=== PATIENT | female | born 1980 | race Caucasian/White ===

== ENCOUNTER 2024-02-04 08:35 | Day surgery (SDC) | payer OTHER ==
[2024-02-04] VITALS (11 sets, daily range): BP systolic 105–127; BP diastolic 65–80; PULSE 59–85; RESP 15–18
[~2024-02-04] VITALS: Ht 154.9 cm; Wt 83.9 kg
[~2024-02-04 08:35] MED LIST: BUPR-49 PO; ESOM20CA31 PO; FAMO20TA8 PO
[2024-02-04] MEDS: 0.9%NACL 1000ML 1,000 ML IV ONE (09:44)
[2024-02-04] MEDS ORDERED: PROPOFOL 10 MG/ML 20ML VIAL IV ONE (10:02)
== END 2024-02-04 11:35 | disposition home or self-care (01) ==
LOC: ENDO 08:35 → DAH 08:35 → ENDO 11:35
PROVIDERS: ATTEND Internal Medicine Gastroenterology
DX: R93.3 Abnormal findings on diagnostic imaging of other parts of digestive tract (principal); K83.8 Other specified diseases of biliary tract; R10.10 Upper abdominal pain, unspecified; K31.89 Other diseases of stomach and duodenum; I25.2 Old myocardial infarction; E78.00 Pure hypercholesterolemia, unspecified; F41.9 Anxiety disorder, unspecified; E03.9 Hypothyroidism, unspecified; E66.9 Obesity, unspecified; Z90.49 Acquired absence of other specified parts of digestive tract; Z72.89 Other problems related to lifestyle; Z68.34 Body mass index [BMI] 34.0-34.9, adult
CPT/HCPCS: 36415; 43239; 43259; 84703; A4606; J2704; J7030; A4215; A4221; A4222; A4223; A4620; A4663; A7002; J3490